=== PATIENT | male | born 1975 | race Caucasian/White ===

== ENCOUNTER 2017-05-06 09:02 | Emergency (ER) | payer MEDICAID ==
[~2017-05-06] VITALS: Ht 175.3 cm; Wt 77.1 kg
[2017-05-06 09:02] VITALS: BP_SYST 155
--- NOTE | 2017-05-06 09:02 | NUR ---
BROUGHT BACK TO BED #2 AND TRIAGED. REPORT GIVEN TO HERNAN
--- NOTE | 2017-05-06 09:05 | NUR ---
ER at bedside examining patient.
--- NOTE | 2017-05-06 09:15 | NUR ---
Pt complains of dull chest pain, denies SOB or pain radiating to the arm or back. Pt ambulated into ER, states has never seen a doctor and for the past 2 months has been feeling weak, pain and sluggish. Pt states he drinks everyday for years. Denies n/v or diarrhea. No other injuries/complaints per pt or noted
[2017-05-06] MEDS ORDERED: NACL 0.9% 1,000 ML IV ONE (09:24)
[2017-05-06 09:50] LABS: BASOPHILS % (AUTO) 0.5 % (0.0-2.0); EOSINOPHILS # (AUTO) 0.2 K/uL (0.0-0.4); EOSINOPHILS % (AUTO) 2.3 % (0.0-4.0); HEMOGLOBIN 14.3 g/dL (14.0-18.0); LYMPHOCYTES # (AUTO) 2.1 K/uL (1.0-5.5); LYMPHOCYTES % (AUTO) 27.9 % (20.5-51.5); MEAN CORPUSCULAR HEMOGLOBIN 32 pg (27-31); MEAN CORPUSCULAR HGB CONC 33 % (32-36); MEAN CORPUSCULAR VOLUME 97 fL (79.0-98.0); MONOCYTES # (AUTO) 0.6 K/uL (0.0-1.0); MONOCYTES % (AUTO) 8.4 % (1.7-9.3); NEUTROPHILS # (AUTO) 4.6 K/uL (1.8-7.7); NEUTROPHILS % (AUTO) 60.9 % (40.0-70.0); PLATELET COUNT (AUTO) 253 K/uL (130-430); RED BLOOD CELL COUNT(AUTO) 4.42 MIL/uL (4.2-6.2); RED CELL DISTRIBUTION WIDTH 12.4 % (9.0-15.0); WHITE BLOOD COUNT (AUTO) 7.5 K/uL (4.8-10.8)
[2017-05-06 09:57] LABS: ANION GAP 9 (5-15); CALCIUM 8.8 mg/dL (8.4-11.0); CHLORIDE 100 mmol/L (98-107); CREATININE 1.06 mg/dL (0.55-1.30); GLUCOSE 108 mg/dL (70-99); POTASSIUM 4.1 mmol/L (3.5-5.1); SODIUM SERUM 137 mmol/L (136-145); UREA NITROGEN, BLOOD 18 mg/dL (8-21)
[2017-05-06 09:58] LABS: GFR AFRICAN AMERICAN 98 mL/min (>90)
[2017-05-06 10:01] LABS: ALANINE AMINOTRANSFERASE 95 U/L (12-78); ASPARTATE AMINOTRANSFERASE 116 U/L (10-37); LIPASE 160 U/L (73-393); TOTAL PROTEIN, SERUM 8.6 g/dL (6.4-8.3)
[2017-05-06 10:04] LABS: ALCOHOL, BLOOD < 3 mg/dL (<10)
[2017-05-06 10:08] LABS: INR 1.1 (0.80-1.20); PROTHROMBIN TIME 11.5 SECS (9.5-12.5)
--- NOTE | 2017-05-06 10:15 | NUR ---
Dr Small is at bedside explaining treatment and discharge plan with the pt.
[2017-05-06 10:20] LABS: BILIRUBIN,URINE 1+ (NEGATIVE); BLOOD, URINE NEGATIVE (NEGATIVE); CLARITY/URINE CLEAR (CLEAR); COLOR,URINE AMBER (YELLOW); GLUCOSE,URINE NEGATIVE (NEGATIVE); KETONES,URINE TRACE (NEGATIVE); LEUKOCYTE ESTERASE ,URINE NEGATIVE (NEGATIVE); NITRITE, URINE NEGATIVE (NEGATIVE); PH,URINE 5.5 (5.0-8.0); PROTEIN URINE 2+ (NEGATIVE); UROBILINOGEN,URINE 0.2 (0.2-1.0)
[2017-05-06 10:32] LABS: BACTERIA,URINE FEW /HPF (None Seen); RBC,URINE 0-3 /HPF (0-3)
[2017-05-06 10:33] LABS: COARSE GRANULAR CASTS,URINE 0-3 /LPF (None Seen); MUCUS,URINE 2+ /LPF (None Seen)
[2017-05-06 10:44] LABS: BARBITURATE, URINE NEGATIVE (NEG <=200); BENZODIAZEPINE, URINE NEGATIVE (NEG <=150); CANNABINOID, URINE NEGATIVE (NEG <=50); COCAINE, URINE NEGATIVE (NEG <=150); METHAMPHETAMINES SCREEN,URINE NEGATIVE (NEG <=500); OPIATE, URINE NEGATIVE (NEG <=100); PHENCYCLIDINE SCREEN,URINE NEGATIVE (NEG <=25); UR TRICYCLIC ANTIDEPRESSANTS NEGATIVE (NEG <=300); URINE AMPHETAMINE NEGATIVE (NEG <=500); URINE METHADONE NEGATIVE (NEG <=200); URINE OXYCODONE SCREEN NEGATIVE (NEG <=100); URINE PROPOXYPHENE SCREEN NEGATIVE (NEG <=300)
[2017-05-06 10:52] VITALS: BP_SYST 160
--- NOTE | 2017-05-06 10:52 | NUR ---
Patient given written and verbal discharge instructions and verbalizes understanding. ER MD discussed with patient the results and treatment provided. Patient in stable condition. ID arm band removed. IV catheter removed intact and dressing applied, no active bleeding. Rx of cortisporin given. Patient educated on pain management and to follow up with PMD. Pain Scale 2. A list of treatment centers were given to the pt to follow up with. Opportunity for questions provided and answered.
== END 2017-05-06 10:52 | disposition home or self-care (01) ==
LOC: SED 09:02
DX: H60.8X3 Other otitis externa, bilateral (principal); K70.10 Alcoholic hepatitis without ascites
CPT/HCPCS: 36415; 80053; 80307; 81000; 83690; 84484; 85025; 85610; 85730; 93005; 96360; 99285; G0482; J7030

== ENCOUNTER 2017-11-15 17:11 | Emergency (ER) | payer SELFPAY ==
[~2017-11-15] VITALS: Ht 175.3 cm; Wt 77.1 kg
[2017-11-15 17:27] VITALS: BP_SYST 129
--- NOTE | 2017-11-15 17:30 | NUR ---
Pt placed to [facility], report received from LISA Gomez. Pt c/o productive cough with blood to sputum, headache, dizziness, sore throat, and pain to chest with coughing x 2 weeks.
--- NOTE | 2017-11-15 17:35 | NUR ---
Dr. Carmona at chairside to assess pt.
[2017-11-15] MEDS ORDERED: LEVOFLOXACIN 500 MG TABLET PO ONE (17:45)
[2017-11-15] MEDS ORDERED: HYDROcodone/ACETAMIN 7.5-325 MG TAB PO ONE (17:45)
[2017-11-15] MEDS ORDERED: ALBUTEROL SULFATE 0.083% 2.5 MG/3 ML VIAL.NEB INH ONE (17:45)
--- NOTE | 2017-11-15 17:50 | NUR ---
Neb tx in progress per RT.
--- NOTE | 2017-11-15 18:54 | NUR ---
Pt states that he can breath much better after the breathing tx.
[2017-11-15 19:15] VITALS: BP_SYST 112
--- NOTE | 2017-11-15 19:15 | NUR ---
Patient given written and verbal discharge instructions and verbalizes understanding. ER MD discussed with patient the results and treatment provided. Patient in stable condition. ID arm band removed. Rx of [place] and Augmentin given. Patient educated on pain management and to follow up with PMD. Pain Scale 0/10. Opportunity for questions provided and answered.
== END 2017-11-15 19:15 | disposition home or self-care (01) ==
LOC: SED 17:11
DX: J40 Bronchitis, not specified as acute or chronic (principal)
CPT/HCPCS: 71045; 94640; 99283